=== PATIENT | female | born 1980 | race Caucasian/White ===

== ENCOUNTER 2022-04-22 16:38 | Emergency (ER) | payer OTHER ==
[~2022-04-22] VITALS: Ht 165.1 cm; Wt 59.9 kg
[~2022-04-22 16:38] MED LIST: ONDA4TAB5 PO; PREN1TAB49 PO
[2022-04-22 16:45] VITALS: BP_SYST 149
--- NOTE | 2022-04-22 17:01 | NUR ---
Placed in room 06 . Placed on teletypesetter monitor, blood pressure machine and pulse oximeter. To gown for exam. Side rails up. Report given to SHELLY HERRMANN.
--- NOTE | 2022-04-22 17:10 | NUR ---
PT BIB SELF AWAKE AND ALERT AO X4, NO SOB. PT C/O PAIN TO LLQ ABDOMIN RADIATING TO LEFT LOWER BACK. PT STATED PAIN IS 10/10 AND STARTED EARLY TODAY. PT DENIED VOMITING BUT FEELS NAESOUS.
--- NOTE | 2022-04-22 17:11 | NUR ---
MD DR SOTO AT BEDSIDE
[2022-04-22] MEDS ORDERED: ONDANSETRON 4 MG ODT TAB PO ONE (17:15)
[2022-04-22] MEDS ORDERED: KETOROLAC TROMETHAMINE 60 MG/2 ML VIAL IM ONE (17:15)
[2022-04-22 17:17] LABS: BILIRUBIN,URINE NEGATIVE (NEGATIVE); BLOOD, URINE 3+ (NEGATIVE); COLOR,URINE ORANGE (YELLOW); KETONES,URINE 3+ (NEGATIVE); PROTEIN URINE 2+ (NEGATIVE)
[2022-04-22 17:26] LABS: CLARITY/URINE HAZY (CLEAR); UROBILINOGEN,URINE >=8 (0.2-1.0)
[2022-04-22 17:27] LABS: GLUCOSE,URINE NEGATIVE (NEGATIVE); LEUKOCYTE ESTERASE ,URINE NEGATIVE (NEGATIVE); NITRITE, URINE NEGATIVE (NEGATIVE)
[2022-04-22 17:28] LABS: BACTERIA,URINE FEW /HPF (None Seen); MUCUS,URINE None Seen /LPF (None Seen); RBC,URINE 20-50 /HPF (0-3); WBC,URINE NONE SEEN /HPF (0-3)
[2022-04-22 17:29] LABS: BASOPHILS % (AUTO) 0.3 % (0.0-2.0); EOSINOPHILS % (AUTO) 0.1 % (0.0-4.0); HEMOGLOBIN 12.9 g/dL (12.0-16.0); LYMPHOCYTES # (AUTO) 1.4 K/uL (1.0-5.5); LYMPHOCYTES % (AUTO) 11.8 % (20.5-51.5); MEAN CORPUSCULAR HEMOGLOBIN 32 pg (27-31); MEAN CORPUSCULAR HGB CONC 35 % (32-36); MEAN CORPUSCULAR VOLUME 92 fL (79.0-98.0); MONOCYTES # (AUTO) 0.4 K/uL (0.0-1.0); MONOCYTES % (AUTO) 3.1 % (1.7-9.3); NEUTROPHILS # (AUTO) 10.3 K/uL (1.8-7.7); NEUTROPHILS % (AUTO) 84.7 % (40.0-70.0); PLATELET COUNT (AUTO) 260 K/uL (130-430); RED BLOOD CELL COUNT(AUTO) 4.03 MIL/uL (4.2-6.2); RED CELL DISTRIBUTION WIDTH 12.3 % (9.0-15.0); WHITE BLOOD COUNT (AUTO) 12.2 K/uL (4.8-10.8)
[2022-04-22 17:39] LABS: ACETONE, SERUM NEGATIVE (NEGATIVE)
[2022-04-22 17:41] LABS: ANION GAP 8 (5-15); CHLORIDE 102 mmol/L (98-107); CREATININE 0.95 mg/dL (0.55-1.30); GLUCOSE 102 mg/dL (70-99); UREA NITROGEN, BLOOD 12 mg/dL (8-21)
[2022-04-22 17:50] LABS: ALANINE AMINOTRANSFERASE 18 U/L (12-78); ALBUMIN 4.5 g/dL (3.4-4.8); AMYLASE 46 U/L (0-100); ASPARTATE AMINOTRANSFERASE 16 U/L (10-37); CALCIUM 9.4 mg/dL (8.4-11.0); LIPASE 73 U/L (73-393); TOTAL BILIRUBIN 0.6 mg/dL (0.0-1.0)
[2022-04-22 17:51] LABS: C-REACTIVE PROTEIN QUANT < 0.2 mg/dL (0-0.5)
[2022-04-22] MEDS ORDERED: HYDR-3917 PO (18:03)
[2022-04-22] MEDS ORDERED: IBUP-1969 PO (18:03)
[2022-04-22] MEDS ORDERED: MORPHINE 4 MG INJ. 4 MG/ML VIAL IM ONE (18:15)
[2022-04-22 19:05] VITALS: BP_SYST 149
--- NOTE | 2022-04-22 19:06 | NUR ---
Patient given written and verbal discharge instructions and verbalizes understanding. ER MD DR SOTO discussed with patient the results and treatment provided. Patient in stable condition. ID arm band removed. IV catheter removed intact and dressing applied, no active bleeding. Rx of NORCO AND MOTRIN given. Patient educated on pain management and to follow up with PMD. Pain Scale 5/10. Opportunity for questions provided and answered. Medication side effect fact sheet provided.
== END 2022-04-22 19:05 | disposition home or self-care (01) ==
LOC: SED 16:38
DX: N23 Unspecified renal colic (principal); R11.0 Nausea; R19.7 Diarrhea, unspecified; Z79.899 Other long term (current) drug therapy
CPT/HCPCS: 99284; 74176; 80053; 81000; 82009; 82150; 84703; 83690; 85025; 86140; 36415; 76376; 81025; 96372; 83605; Q0162; J1885; J2270

== ENCOUNTER 2023-05-01 10:17 | Emergency (ER) | payer OTHER ==
[~2023-05-01] VITALS: Ht 165.1 cm; Wt 61.2 kg
[2023-05-01 10:17] VITALS: BP_SYST 144; PULSE 67; RESP 22; TEMP 97.1; O2SAT 100
[~2023-05-01 10:17] MED LIST changes: +HYDR-3917 PO; +IBUP-1969 PO
[2023-05-01] MEDS ORDERED: NACL 0.9% 1,000 ML IV ONE (10:30)
[2023-05-01] MEDS ORDERED: KETOROLAC TROMETHAMINE 30 MG VIAL IVP ONE (10:30)
[2023-05-01 10:38] LABS: BASOPHILS # (AUTO) 0.1 K/uL (0.0-0.2); BASOPHILS % (AUTO) 0.6 % (0.0-2.0); EOSINOPHILS # (AUTO) 0.1 K/uL (0.0-0.4); EOSINOPHILS % (AUTO) 0.8 % (0.0-4.0); HEMATOCRIT 36.3 % (36-48); HEMOGLOBIN 12.1 g/dL (12.0-16.0); LYMPHOCYTES # (AUTO) 2.3 K/uL (1.0-5.5); LYMPHOCYTES % (AUTO) 26.2 % (20.5-51.5); MEAN CORPUSCULAR HEMOGLOBIN 32 pg (27-31); MEAN CORPUSCULAR HGB CONC 33 % (32-36); MEAN CORPUSCULAR VOLUME 95 fL (79.0-98.0); MONOCYTES # (AUTO) 0.3 K/uL (0.0-1.0); MONOCYTES % (AUTO) 3.8 % (1.7-9.3); NEUTROPHILS # (AUTO) 5.9 K/uL (1.8-7.7); NEUTROPHILS % (AUTO) 68.6 % (40.0-70.0); PLATELET COUNT (AUTO) 293 K/uL (130-430); RED BLOOD CELL COUNT(AUTO) 3.82 MIL/uL (4.2-6.2); RED CELL DISTRIBUTION WIDTH 12.6 % (9.0-15.0); WHITE BLOOD COUNT (AUTO) 8.6 K/uL (4.8-10.8)
[2023-05-01] MEDS ORDERED: fentaNYL CITRATE/PF 100 MCG/2 ML AMP IVP ONE (11:00)
[2023-05-01 11:05] LABS: CALCIUM 9.2 mg/dL (8.4-11.0); CREATININE 0.9 mg/dL (0.55-1.30); POTASSIUM 3.4 mmol/L (3.5-5.1)
[2023-05-01 11:09] LABS: ALBUMIN 4.1 g/dL (3.4-4.8); TOTAL BILIRUBIN 0.7 mg/dL (0.0-1.0); TOTAL PROTEIN, SERUM 6.8 g/dL (6.4-8.3)
[2023-05-01 11:25] LABS: BILIRUBIN,URINE NEGATIVE (NEGATIVE); BLOOD, URINE 3+ (NEGATIVE); CLARITY/URINE CLEAR (CLEAR); COLOR,URINE YELLOW (YELLOW); GLUCOSE,URINE NEGATIVE (NEGATIVE); KETONES,URINE NEGATIVE (NEGATIVE); LEUKOCYTE ESTERASE ,URINE NEGATIVE (NEGATIVE); NITRITE, URINE NEGATIVE (NEGATIVE); PROTEIN URINE NEGATIVE (NEGATIVE); UROBILINOGEN,URINE 0.2 (0.2-1.0)
[2023-05-01] MEDS ORDERED: ONDANSETRON HCL 4 MG/2 ML VIAL IVP ONE ×2 (11:30→12:45)
[2023-05-01 11:47] LABS: BACTERIA,URINE None Seen /HPF (None Seen); RBC,URINE 50-80 /HPF (0-3); WBC,URINE 0-3 /HPF (0-3)
[2023-05-01 11:49] LABS: URINE AMORPHOUS URATE 1+ /HPF (None Seen)
[2023-05-01] MEDS ORDERED: MORPHINE 4 MG INJ. 4 MG/ML VIAL IVP ONE (12:45)
[2023-05-01] MEDS ORDERED: HYDR-3917 PO (13:32)
[2023-05-01] MEDS ORDERED: NAPR-688 PO (13:32)
[2023-05-01 13:38] VITALS: BP_SYST 145; PULSE 74; RESP 21; TEMP 97.1; O2SAT 99
[2023-05-01] MEDS ORDERED: ONDA-8 TL (13:38)
== END 2023-05-01 13:38 | disposition home or self-care (01) ==
LOC: SED 10:17
DX: N20.0 Calculus of kidney (principal); R10.9 Unspecified abdominal pain; R11.2 Nausea with vomiting, unspecified; Z79.899 Other long term (current) drug therapy
CPT/HCPCS: 99285; 74176; 96374; 96375; 96361; 80053; 81001; 85025; 36415; 76376; 96376; 81000; 81015; J1885; J2405; J3010; J2270; J7030